=== PATIENT | male | born 1950 | race Caucasian/White ===

== ENCOUNTER 2023-06-19 09:33 | Outpatient (CLI) | payer MEDICARE | END 2023-06-19 09:34 | disposition home or self-care (01) | LOC: SCSMRI 09:33 | PROVIDERS: ATTEND Psychiatry & Neurology Neurology | DX: M48.061 Spinal stenosis, lumbar region without neurogenic claudication (principal); M47.816 Spondylosis without myelopathy or radiculopathy, lumbar region; M47.817 Spondylosis without myelopathy or radiculopathy, lumbosacral region; M51.26 Other intervertebral disc displacement, lumbar region; M25.78 Osteophyte, vertebrae | CPT/HCPCS: 72148 ==